=== PATIENT | female | born 1990 | race Asian ===

== ENCOUNTER 2016-10-17 00:45 | Outpatient (CLI) | payer MEDICAID ==
[~2016-10-17] VITALS: Ht 154.9 cm; Wt 85.4 kg
[~2016-10-17 00:45] MED LIST: PREN1TAB49; PREN1TAB49 PO
[2016-10-17 02:12] VITALS: Ht 154.9 cm; Wt 85.4 kg
[2016-10-17 02:13] VITALS: BP 117/72; PULSE 91; RESP 16
--- NOTE | 2016-10-17 02:19 | TRIAGE ---
OB Triage Datetime Report Generated by CPN: 10/17/2016 02:19 Datetime: 10/17/2016 02:00 Stage of : OB Triage Datetime: 10/17/2016 01:49 Stage of : OB Triage Datetime: 10/17/2016 01:42 Maternal Assessment Level of Consciousness: Fully Conscious DTR's/Clonus: DTRs 2+; No Clonus Headache: Denies Blurred Vision: No Respiratory Effort: Unlabored; Regular Rhythm; Equal Expansion Breath Sounds, Left: Clear and Equal Breath Sounds, Right: Clear and Equal Nausea/Vomiting: Denies RUQ Epigastric Pain: Denies Lower Extremities Edema: Bilateral Lower Extremities Degree: 1+ Upper Extremities Edema: None Degree: None Facial Edema: None Fall Risk Assessment History of Falling: (0) No Secondary Diagnosis: (0) No Ambulatory Aid: (0) Bedrest/Nurse Assist IV Therapy: (0) No Gait: (0) Normal/Bedrest/Immobile Mental Status: (0) Oriented to Own Ability Fall Score: 0 Fall Risk Score Definition: No Risk: No action required Datetime: 10/17/2016 01:41 EGA: 31.2 Datetime: 10/17/2016 01:39 Time of Arrival: 10/17/2016 00:45 Arrived By: Ambulatory Arrived From: Home Chief Complaint: Patient was encouraged to come to labor and delivery if she has more than 3 UCs i n one hour Movement: Present Contractions: Irregular Time Contractions Began: 10/16/2016 23:30 Rupture of Membranes: Denies Vaginal Bleeding: None Vaginal Discharge: Denies Recent Sexual Intercouse: Denies Abdominal Trauma: Not Applicable Patient Complaints: Contractions Time Provider Notified: 10/17/2016 01:40 Provider Notified: Bear Initial Plan: VS/VE/External monitors Datetime: 10/17/2016 01:32 Vaginal Exam Dilatation (cms): 0.0 Effacement (%): 0 Station: -3 Exam By: Marta Kerr RN Membrane Status: Intact Vaginal Bleeding: None Cervix, Consistency: Firm Cervix, Position: Posterior Datetime: 10/17/2016 01:28 Stage of : OB Triage
--- NOTE | 2016-10-17 05:45 | PN ---
Triage Information Date/Time Weeks of Gestation 31 : 1 Para: 0 Diabetes: none, gestational Diabetes management: diet controlled Hypertention: none Additional information patient came with c/o 2-3 ctx per hour; no ctx right now. No VB, no LOF, good FM Objective Vital Signs Date Time Temp Pulse Resp B/P Pulse Ox O2 Delivery O2 Flow Rate FiO2 10/17/16 02:13 97.7 91 16 117/72 98 Room Air Heart Rate: 140's Contractions: None Exam abdomen- gravid, n/t SVE- l/c/p Assessment/Plan 26 yo P0 @ 31 wks, r/o PTL - SVE l/c/p - patient not currently having any ctx - reassuring status; not in PTL -d/c home SHELLY KELLEY MD Oct 17, 2016 05:45
== END 2016-10-17 02:00 | disposition home or self-care (01) ==
LOC: L-D 00:45 → OBT 00:45
PROVIDERS: ATTEND Obstetrics & Gynecology
DX: O62.9 Abnormality of forces of labor, unspecified (principal); O24.410 Gestational diabetes mellitus in pregnancy, diet controlled; Z3A.31 31 weeks gestation of pregnancy
CPT/HCPCS: G0463

== ENCOUNTER 2016-11-05 13:13 | Outpatient (CLI) | payer MEDICAID ==
[~2016-11-05] VITALS: Ht 152.4 cm; Wt 85.7 kg
[2016-11-05 13:30] VITALS: BP 116/87; PULSE 114; RESP 20; Ht 152.4 cm; Wt 85.7 kg
--- NOTE | 2016-11-05 14:25 | RADRPT ---
PROCEDURE: OB ultrasound for biophysical profile CLINICAL INDICATION: Gestational diabetes mellitus. TECHNIQUE: Multiple sonographic images of the pelvis were obtained. Transabdominal view of the gr avid uterus are available for review. The images were reviewed on a PACS workstation. COMPARISON: None FINDINGS: breathing movement = 2/2 tone = 2/2 motion = 2/2 Quantitative amniotic fluid volume = 2/2 USAMA = 16.7 cm Single live intrauterine with cardiac activity at 140 beats per minute. There is a fundal placenta without previa. IMPRESSION: 1. Single living intrauterine gestation in breech position. 2. Biophysical profile = 8. 3. USAMA = 16.7 cm. RPTAT: AACC Physician Sophia Date Time Electronically viewed and signed by Physician Sophia on 11/05/2016 14:25 /
--- NOTE | 2016-11-05 16:37 | RADRPT ---
PROCEDURE: US OB. CLINICAL INDICATION: Gestational diabetes. TECHNIQUE: Multiple sonographic images of the uterus were obtained. The images were revi ewed on a PACS workstation. COMPARISON: No prior studies are available for comparison. FINDINGS: There is a single live intrauterine gestation. heart rate is 139 beats per minute. Measurements were made in order to determine age. The results are as follows: BPD = 9.24 cm. HC = 32.67 cm. AC = 33.81 cm. FL = 7.18 cm. Estimated weight is 3199 +/- 480 grams. LMP growth percentile is greater than 97 %. Menstrual age by ultrasound dates is 37 weeks 2 days. The estimated date of delivery is 11/24/2016. Position is breech and placenta is right lateral grade 1. There is no evidence for an abruption or p lacenta previa. IMPRESSION: 1. Single live intrauterine gestation of 37 weeks 2 days menstrual age by ultrasound dates. 2. The estimated date of delivery is 11/24/2016. 3. LMP growth percentile is greater than 97. RPTAT: QQ .Chuck Brunner MD, MD Date Time Electronically viewed and signed by .Chuck Brunner MD, on 11/05/2016 16:37 .R/
--- NOTE | 2016-11-05 17:47 | PN ---
Triage Information Date/Time 11/05/2016 Weeks of Gestation 34+ : 6 Para: 3 Diabetes: gestational Diabetes management: diet controlled, oral agent Hypertention: none Additional information sent in for antepartum testing Objective Vital Signs Date Time Temp Pulse Resp B/P Pulse Ox O2 Delivery O2 Flow Rate FiO2 11/05/16 13:30 97.5 114 20 116/87 Room Air Heart Rate: 140's Heart Rate Comments reactive Results/Medications Result Diagram: 11/05/16 1555 Results 24 hrs Laboratory Tests Test 11/05/16 15:55 Glucose Level 187 Hemoglobin A1c 7.3 H Imaging Results BPP 8/ EFW: 3199gn and breech Assessment/Plan follow up out patient ALLISON GUTIERREZ MD Nov 05, 2016 17:46
--- NOTE | 2016-11-05 18:46 | TRIAGE ---
OB Triage Datetime Report Generated by CPN: 11/05/2016 18:46 Datetime: 11/05/2016 17:30 Labor Evaluation Frequency: 0 Monitor Mode: External Heart Rate FHR Baseline Rate: 140 Monitor Mode: External US Variability: Moderate 6-25 bpm Accelerations: 15X15 Decelerations: None Category: Category I Pain Assessment Pain Scale: 0 Pain Presence: None/Denies Pain Type: N/A Pain Goal: 0 Datetime: 11/05/2016 16:59 Labor Evaluation Frequency: X3 Monitor Mode: External Duration (sec)2399: 40-60 Quality: Mild Pattern: Normal: <= 5 Contractions in 10 Minutes Resting Tone [place]: Relaxed Heart Rate FHR Baseline Rate: 140 Monitor Mode: External US FHR Baseline Changes: No Baseline Change Variability: Moderate 6-25 bpm Accelerations: 15X15 Decelerations: None Category: Category I Pain Assessment Pain Scale: 0 Pain Presence: None/Denies Pain Type: N/A Pain Goal: 0 Datetime: 11/05/2016 16:00 Labor Evaluation Frequency: 0 Monitor Mode: External Heart Rate FHR Baseline Rate: 150 Monitor Mode: External US FHR Baseline Changes: No Baseline Change Variability: Moderate 6-25 bpm Accelerations: 15X15 Decelerations: None Category: Category I Pain Assessment Pain Scale: 0 Pain Presence: None/Denies Pain Type: N/A Pain Goal: 0 Datetime: 11/05/2016 15:30 Labor Evaluation Frequency: X3 Monitor Mode: External Duration (sec)2399: 60 Quality: Mild Pattern: Normal: <= 5 Contractions in 10 Minutes Resting Tone [place]: Relaxed Heart Rate FHR Baseline Rate: 140 Monitor Mode: External US FHR Baseline Changes: No Baseline Change Variability: Moderate 6-25 bpm Accelerations: 10X10 Decelerations: None Category: Category I Pain Assessment Pain Scale: 0 Pain Presence: None/Denies Pain Type: N/A Pain Goal: 0 Datetime: 11/05/2016 15:00 Labor Evaluation Frequency: X1 Monitor Mode: External Duration (sec)2399: 60 Quality: Mild Pattern: Normal: <= 5 Contractions in 10 Minutes Resting Tone [place]: Relaxed Heart Rate FHR Baseline Rate: 140 Monitor Mode: External US FHR Baseline Changes: No Baseline Change Variability: Moderate 6-25 bpm Accelerations: 15X15 Decelerations: None Category: Category I Pain Assessment Pain Scale: 0 Pain Presence: None/Denies Pain Type: N/A Pain Goal: 0 Datetime: 11/05/2016 14:00 Labor Evaluation Frequency: X2 Monitor Mode: External Duration (sec)2399: 60 Quality: Mild Pattern: Normal: <= 5 Contractions in 10 Minutes Resting Tone [place]: Relaxed Heart Rate FHR Baseline Rate: 140 Monitor Mode: External US FHR Baseline Changes: No Baseline Change Variability: Moderate 6-25 bpm Accelerations: 15X15 Decelerations: None Category: Category I Pain Assessment Pain Scale: 0 Pain Presence: None/Denies Pain Goal: 0 Datetime: 11/05/2016 13:30 Assessment Type: Triage Maternal Assessment Level of Consciousness: Fully Conscious DTR's/Clonus: DTRs 2+; No Clonus Headache: Denies Blurred Vision: No Respiratory Effort: Unlabored; Regular Rhythm; Equal Expansion Nausea/Vomiting: Denies RUQ Epigastric Pain: Denies Lower Extremities Edema: None Degree: None Upper Extremities Edema: None Degree: None Facial Edema: None Fall Risk Assessment History of Falling: (0) No Secondary Diagnosis: (0) No Ambulatory Aid: (0) Bedrest/Nurse Assist IV Therapy: (0) No Gait: (0) Normal/Bedrest/Immobile Mental Status: (0) Oriented to Own Ability Fall Score: 0 Fall Risk Score Definition: No Risk: No action required Datetime: 11/05/2016 13:28 Monitor Mode: External Monitor Mode: External US Pain Assessment Pain Scale: 0 Pain Presence: None/Denies Pain Type: N/A Pain Goal: 0 Datetime: 11/05/2016 13:25 Time of Arrival: 11/05/2016 13:10 EGA: 34.0 Arrived By: Ambulatory Arrived From: Dr. Singh Chief Complaint: PT SENT BY FOR NST AND BPP Movement: Present Rupture of Membranes: Denies Vaginal Bleeding: None Vaginal Discharge: Denies Recent Sexual Intercouse: Denies Abdominal Trauma: Not Applicable Patient Complaints: None Time Provider Notified: 11/05/2016 15:33 Provider Notified: DR. DILLON Initial Plan: MK HOLLAND Datetime: 10/17/2016 01:45 Stage of : OB Triage Maternal Assessment Level of Consciousness: Fully Conscious Labor Evaluation Frequency: 0/hour Monitor Mode: External Quality: Mild Pattern: Normal: <= 5 Contractions in 10 Minutes Resting Tone [place]: Relaxed Contraction Comments: patient denies feeling any UCs at this time - since she has been in OB triag e Heart Rate FHR Baseline Rate: 140 Monitor Mode: External US FHR Baseline Changes: No Baseline Change Variability: Moderate 6-25 bpm Accelerations: 10X10 Decelerations: None Category: Category I Pain Assessment Pain Scale: 0 Pain Presence: None/Denies Pain Type: N/A Pain Goal: 0 Pain Relief Measures: Comfort Measures Pain Assessment Comments: patient denies pain Datetime: 10/17/2016 01:42 Stage of : OB Triage Fall Score: 0 Fall Risk Score Definition: No Risk: No action required Pain Assessment Pain Scale: 0 Pain Presence: None/Denies Pain Type: N/A Pain Assessment Comments: patient denies pain at this time Datetime: 10/17/2016 01:41 EGA: 31.2 Datetime: 10/17/2016 01:39 Chief Complaint: Per patient - patient was encouraged by her doctor to come to labor and delivery if she has more than 3 UCs in one hour Additional Patient Complaints: None Datetime: 10/17/2016 01:15 Stage of : OB Triage Maternal Assessment Level of Consciousness: Fully Conscious Headache: Denies Nausea/Vomiting: Denies Labor Evaluation Frequency: 1/hour Monitor Mode: External Duration (sec)2399: 40 Quality: Mild Pattern: Normal: <= 5 Contractions in 10 Minutes Resting Tone [place]: Relaxed Heart Rate FHR Baseline Rate: 145 Monitor Mode: External US FHR Baseline Changes: No Baseline Change Variability: Moderate 6-25 bpm Accelerations: 10X10 Decelerations: None Category: Category I Pain Assessment Pain Scale: 0 Pain Presence: None/Denies Pain Type: N/A Pain Goal: 0 Pain Assessment Comments: patient denies pain
== END 2016-11-05 17:55 | disposition home or self-care (01) ==
LOC: OBT 13:13 → L-D 13:16 → OBT 17:55
PROVIDERS: ATTEND Obstetrics & Gynecology
DX: O24.419 Gestational diabetes mellitus in pregnancy, unspecified control (principal); Z3A.34 34 weeks gestation of pregnancy
CPT/HCPCS: 76815; 76818; 82947; 83036; Z7500; G0463

== ENCOUNTER 2016-11-07 16:12 | Inpatient (IN) | payer MEDICAID ==
[~2016-11-07] VITALS: Ht 152.4 cm; Wt 85.5 kg
[~2016-11-07 16:12] MED LIST changes: -PREN1TAB49 PO
[2016-11-07] MEDS ORDERED: METF500T3 PO (17:11)
[2016-11-07] MEDS: LACTATED RINGER'S 1,000 ML IV SCH ×2 (17:58→20:14)
[2016-11-07] MEDS ORDERED: BETAMET NA PHOS/AC(6 MG/ML) 5ML INJ IM ONE (18:00)
[2016-11-07] MEDS ORDERED: CARBOPROST 250 MCG INJ IM PRN (18:00)
[2016-11-07] MEDS ORDERED: METHYLERGONOVINE 0.2 MG INJ IM PRN (18:00)
[2016-11-07] MEDS ORDERED: OXYTOCIN 30 UNITS/LR 500 ML IV SCH ×2 (18:00)
[2016-11-07] MEDS ORDERED: OXYTOCIN 30 UNITS/LR 500 ML IV PRN (18:00)
[2016-11-07] MEDS ORDERED: MAGNESIUM SULFATE 4 GM/100 ML 100 ML IVPB ONE (18:00)
[2016-11-07] MEDS ORDERED: MISOPROSTOL 200 MCG TAB PR PRN (18:00)
[2016-11-07 18:03] LABS: BASOPHIL # 0.1 10^3/ul (0.0-0.1); BASOPHILS % 0.6 % (0.0-2.0); EOSINOPHILS # 0.2 10^3/ul (0.0-0.5); EOSINOPHILS % 2.6 % (0.0-7.0); HEMATOCRIT 39.3 % (37.0-47.0); HEMOGLOBIN 13.4 g/dl (12.0-16.0); LYMPHOCYTES % 24.4 % (15.0-51.0); MEAN CORPUSCULAR HEMOGLOBIN 30.2 pg (29.0-33.0); MEAN CORPUSCULAR HGB CONC 34.1 g/dl (32.0-37.0); MEAN CORPUSCULAR VOLUME 88.7 fl (82.0-101.0); MEAN PLATELET VOLUME 10.8 fl (7.4-10.4); MONOCYTE # 0.5 10^3/ul (0.3-0.9); MONOCYTES % 6.1 % (0.0-11.0); NEUTROPHIL # 5.3 10^3/ul (1.6-7.5); NEUTROPHILS % 65.3 % (39.0-77.0); PLATELET COUNT 239 10^3/UL (140-415); RED BLOOD COUNT 4.43 10^6/ul (4.20-5.40); RED CELL DISTRIBUTION WIDTH 13.8 % (11.5-14.5); WHITE BLOOD COUNT 8.1 10^3/ul (4.8-10.8)
[2016-11-07 18:26] LABS: PARTIAL THROMBOPLASTIN TIME 24.9 Sec (25.0-35.0)
[2016-11-07] MEDS: MAGNESIUM SULFATE 20 GM/500 ML 500 ML IV SCH (18:33)
[2016-11-07 18:36] VITALS: BP 119/72; PULSE 104; RESP 20
[2016-11-07 18:51] LABS: ADD UMIC YES; UR ASCORBIC ACID NEGATIVE (NEGATIVE); UR BACTERIA FEW /HPF (NONE SEEN); UR BILIRUBIN (Dip) NEGATIVE (NEGATIVE); UR BLOOD (Dip) NEGATIVE (NEGATIVE); UR CLARITY CLOUDY (CLEAR); UR COLOR YELLOW (YELLOW); UR GLUCOSE (Dip) NEGATIVE (NEGATIVE); UR KETONES (Dip) 2+ mg/dL (NEGATIVE); UR LEUKOCYTE ESTERASE (Dip) TRACE Leu/ul (NEGATIVE); UR NITRITE (Dip) NEGATIVE (NEGATIVE); UR RBC 2 /HPF (0-5); UR SPECIFIC GRAVITY (Dip) 1.013 (1.003-1.030); UR SQUAMOUS EPITHELIAL CELL MODERATE /HPF (FEW); UR TOTAL PROTEIN (Dip) NEGATIVE (NEGATIVE); UR UROBILINOGEN (Dip) NEGATIVE (NEGATIVE)
[2016-11-07 19:28] LABS: INR 0.9; PROTIME 12.2 Sec (12.2-14.2)
[2016-11-07] MEDS ORDERED: TERBUTALINE 1 MG/ML INJ SC PRN (22:00)
--- NOTE | 2016-11-07 22:32 | HP ---
Date/Time of Note Date/Time of Note DATE: 11/07/16 TIME: 22:29 OB - History Hx of Present Free Text/Dictation 17 by NST unit for persistent uterine contractions at 34 weeks Chief Complaint: Labor contract Last Menstrual Period: Mar 13, 2016 Estimated Due Date: Dec 18, 2016 : 4 Para: 2 Spontaneous : 1 Care: Good Care Ultrasounds: Normal mid trimester US Obstetrical Complications: Gestational Diabetes (Class A-II) Medical Complications: None, Other (Previous 2) Past Family/Social History * Past Medical, Surgical, Family and Obstetric Histories reviewed from chart. Blood Type: A+ Rubella: immune RPR/VDRL: Negative GBS Status: Unknown HBsAG: Negative OB Admission Exam Vital Signs Vital Signs Vital Signs Date Time Temp Pulse Resp B/P Pulse Ox O2 Delivery O2 Flow Rate FiO2 11/07/16 18:36 97.1 104 20 119/72 Room Air Physical Exam HEENT: WNL Heart: Rhythm Normal Lungs: Clear, Equal Abdomen: WNL Extremities: Normal Reflexes: Normal Cervical Dilatation: 2cm Effacement: 50% Station: -3 Membranes: Intact Heart Rate: 150's Accelerations: Accelerations Present Decelerations: No Decelerations Varibility: Marked Contractions on Admission: < 5 Minutes Apart Date/Time Contractions Began: 11/07/2016 in a.m. Frequency of Contractions: Every 5 minute Duration: Over 1 minute Intensity: Mild Last 72 hours Lab Results CBC & BMP 11/07/16 17:45 OB Assessment/Plan Reason for admission: labor Other Assessment: 34+ weeks gestation Class A-II diabetes Other plan: Topical lysis of contractions ALLISON GUTIERREZ MD Nov 07, 2016 22:32
[2016-11-07] MEDS: metFORMIN (XR) 500 MG TAB PO SCH (22:59)
[2016-11-07] MEDS: ACCU-CHEK XX SCH (23:40)
[2016-11-08] MEDS ORDERED: GLUCOSE GEL 15 GRAM TUBE PO PRN ×2
[2016-11-08] MEDS ORDERED: GLUCOSE GEL 15 GRAM TUBE BUCCAL PRN
[2016-11-08] MEDS ORDERED: GLUCAGON 1 MG INJ IM PRN
[2016-11-08] MEDS ORDERED: DEXTROSE 50% 50 ML SYRINGE IV PRN ×2
[2016-11-08] MEDS: ACCU-CHEK XX SCH ×6 (03:32→20:22)
[2016-11-08] MEDS: MAGNESIUM SULFATE 20 GM/500 ML 500 ML IV SCH ×3 (04:14→22:27)
[2016-11-08] MEDS: LACTATED RINGER'S 1,000 ML IV SCH ×2 (05:11→17:57)
[2016-11-08] MEDS: FAMOTIDINE 20 MG TAB PO SCH ×2 (08:09→21:28)
[2016-11-08] MEDS ORDERED: INSULIN ASPART [NOVOLOG] 3 ML PEN SC SCH (09:35)
[2016-11-08] MEDS: DOCUSATE SODIUM 100 MG CAP PO SCH (10:11)
[2016-11-08] MEDS: PRENATAL VITAMIN PO SCH (10:11)
[2016-11-08] MEDS: INSULIN ASPART [NOVOLOG] 3 ML PEN SC SCH ×2 (12:53→18:06)
[2016-11-08] MEDS ORDERED: BETAMET NA PHOS/AC(6 MG/ML) 5ML INJ IM ONE (18:00)
--- NOTE | 2016-11-08 18:01 | PN ---
Date/Time of Note Date/Time of Note DATE: 11/08/16 TIME: 17:59 OB Subjective Subjective Subjective No more complaint of uterine contractions OB Objective Objective Objective General physical exam is unchanged Vital signs are stable On electronic monitoring minimal uterine contractions seen Patient is supposed to receive the second dose of steroid today Currently on sliding scale of insulin for sugar control OB Assessment/Plan Reason for admission: labor Other Assessment: 34 weeks gestation Gestational diabetes out of control Other plan: We will consult perinatologist regarding sugar control Continue tocolysis until next day Change to p.o. tocolytics next day ALLISON GUTIERREZ MD Nov 08, 2016 18:01
[2016-11-08] MEDS: metFORMIN (XR) 500 MG TAB PO SCH (18:32)
[2016-11-09] MEDS: LACTATED RINGER'S 1,000 ML IV SCH ×3 (01:38→17:38)
[2016-11-09] MEDS: MAGNESIUM SULFATE 20 GM/500 ML 500 ML IV SCH (08:38)
[2016-11-09] MEDS: FAMOTIDINE 20 MG TAB PO SCH ×2 (08:40→21:00)
[2016-11-09] MEDS: PRENATAL VITAMIN PO SCH (08:48)
[2016-11-09] MEDS: DOCUSATE SODIUM 100 MG CAP PO SCH (08:48)
[2016-11-09] MEDS: INSULIN ASPART [NOVOLOG] 3 ML PEN SC SCH ×5 (08:50→17:38)
[2016-11-09] MEDS: ACCU-CHEK XX SCH ×4 (10:55→20:54)
--- NOTE | 2016-11-09 12:30 | PN ---
Date/Time of Note Date/Time of Note DATE: 11/09/16 TIME: 12:27 OB Subjective Subjective Subjective No more complaint of uterine contractions OB Objective Objective Objective General physical exam is unchanged and vital signs are stable On electronic monitoring uterine contractions seen 2 times every hour at most Fasting blood sugars in 2 hours are still elevated OB Assessment/Plan Reason for admission: labor Other Assessment: Uncontrolled gestational diabetes 34+ weeks gestation Breech presentation Other plan: Will start on nifedipine after stopping magnesium sulfate at 1800 p.m. Start on NPH insulin nightly Perinatology consult for sugar control Diabetic nurse consult for for diet control and insulin initiation ALLISON GUTIERREZ MD Nov 09, 2016 12:30
[2016-11-09] MEDS: metFORMIN (XR) 500 MG TAB PO SCH (17:39)
[2016-11-09] MEDS: NIFEdipine 10 MG CAP PO SCH (17:41)
[2016-11-09] MEDS ORDERED: NPH, HUMAN INSULIN ISOPHANE 3ML VIAL SC SCH (21:00)
[2016-11-10] MEDS: NIFEdipine 10 MG CAP PO SCH ×4 (00:17→17:44)
[2016-11-10] MEDS: ACCU-CHEK XX SCH ×3 (08:06→14:04)
[2016-11-10] MEDS: PRENATAL VITAMIN PO SCH (09:03)
[2016-11-10] MEDS: DOCUSATE SODIUM 100 MG CAP PO SCH (09:03)
[2016-11-10] MEDS: FAMOTIDINE 20 MG TAB PO SCH (09:03)
[2016-11-10] MEDS ORDERED: ACETAMINOPHEN 325 MG TAB PO PRN (12:30)
--- NOTE | 2016-11-10 16:08 | PERINOTE ---
Date/Time of Note Date/Time of Note DATE: 11/10/16 TIME: 16:00 Assessment/Recommendations Other Assessments contractions, now abated Gestational diabetes, poorly controlled Recommendations: I have rewritten the patient's insulin orders. Anticipate that she will require additional insulin for coverage for steroid use for an additional 1-2 days. Would consider discharging her home with follow up in one week for adjustment of insulin. OB Subjective Free Text/Dictaton Patient with gestational diabetes, admitted for [facility] and treated for presumed labor. Blood glucose is poorly controlled, at least partly due to use of betamethasone for lung maturity. Patient now without complaints. HD# 4 IUP @ 34W4D Current Medications Current Medications Oxytocin/Lactated Ringer's 500 ml @ 125 mls/hr ONCE IV ; Start 11/07/16 at 18: 00 Oxytocin/Lactated Ringer's 500 ml @ 0 mls/hr ONCE PRN IV For Hemorrhage Management; Start 11/07/16 at 18:00 Methylergonovine Maleate (Methergine) 0.2 mg ONCE PRN IM VAGINAL BLEEDING; Start 11/07/16 at 18:00 Carboprost Tromethamine (Hemabate) 250 mcg ONCE PRN IM VAGINAL BLEEDING; Start 11/07/16 at 18:00 Misoprostol (Cytotec) 1,000 mcg ONCE PRN GA VAGINAL BLEEDING; Start 11/07/16 at 18:00 Terbutaline Sulfate (Brethine) 0.25 mg Q4 PRN SC CONTRACTIONS Last administered on 11/07/16 22:00; Admin Dose 0.25 MG; Start 11/07/16 at 22:00 Prenat Multivit/ [place]/Iron/Folic Ac () 1 tab DAILY PO Last administered on 11/10/16 09:03; Admin Dose 1 TAB; Start 11/08/16 at 09:00 Famotidine (Pepcid) 20 mg BID PO Last administered on 11/10/16 09:03; Admin Dose 20 MG; Start 11/08/16 at 09:00 Miscellaneous Information 1 ea NOTE XX ; Start 11/08/16 at 00:00 Glucose (Glutose) 15 gm Q15M PRN PO DECREASED GLUCOSE; Start 11/08/16 at 00:00 Glucose (Glutose) 22.5 gm Q15M PRN PO DECREASED GLUCOSE; Start 11/08/16 at 00: 00 Dextrose (D50w Syringe) 25 ml Q15M PRN IV DECREASED GLUCOSE; Start 11/08/16 at 00:00 Dextrose (D50w Syringe) 50 ml Q15M PRN IV DECREASED GLUCOSE; Start 11/08/16 at 00:00 Glucagon (Glucagen) 1 mg Q15M PRN IM DECREASED GLUCOSE; Start 11/08/16 at 00:00 Glucose (Glutose) 15 gm Q15M PRN BUCCAL DECREASED GLUCOSE; Start 11/08/16 at 00 :00 Diagnostic Test (Pha) (Accu-Chek) 1 ea FBSPP XX Last administered on 11/10/16 14:04; Admin Dose 1 EA; Start 11/08/16 at 06:00 Docusate Sodium (Colace) 100 mg DAILY PO Last administered on 11/10/16 09:03; Admin Dose 100 MG; Start 11/08/16 at 10:30 Nifedipine (Procardia) 20 mg Q6 PO Last administered on 11/10/16 12:05; Admin Dose 20 MG; Start 11/09/16 at 18:00 Insulin Human NPH (Humulin N) 10 unit QHS SC Last administered on 11/09/16 21: 06; Admin Dose 10 UNIT; Start 11/09/16 at 21:00 IV Flush (NS 10 ml) 10 ml Q8 IV Last administered on 11/10/16 14:09; Admin Dose 10 ML; Start 11/09/16 at 22:00 Acetaminophen (Tylenol Tab) 650 mg Q6H PRN PO PAIN AND OR ELEVATED TEMP Last administered on 11/10/16 12:16; Admin Dose 650 MG; Start 11/10/16 at 12:30 Past Medical History Medical History: no pertinent history Surgical History: no surgical history 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 Para: 3 : 6 LMP (Females 10-50): Family History Significant Family History: diabetes OB Admission Exam Physical Exam Vitals: Vital Signs Date Time Temp Pulse Resp B/P Pulse Ox O2 Delivery O2 Flow Rate FiO2 11/07/16 18:36 97.1 104 20 119/72 Room Air 11/10/16 87 116/57 Heart: Rhythm Normal Lungs: Clear Abdomen: WNL Heart Rate: 150's Accelerations: Accelerations Present Decelerations: No Decelerations Varibility: Moderate Contractions on Admission: None Last 72 hourBlood Glucose Bedside Glucose - 72 Hours Test 11/07/16 23:43 11/08/16 07:51 11/08/16 09:48 11/08/16 12:47 Bedside Glucose 344mg/dL (70-220) H 147mg/dL (70-220) 137mg/dL (70-220) 147mg/dL (70-220) Test 11/08/16 14:51 11/08/16 17:58 11/08/16 20:13 11/09/16 08:47 Bedside Glucose 140mg/dL (70-220) 158mg/dL (70-220) 206mg/dL (70-220) 136mg/dL (70-220) Test 11/09/16 10:50 11/09/16 12:53 11/09/16 14:59 11/09/16 17:32 Bedside Glucose 144mg/dL (70-220) 144mg/dL (70-220) 188mg/dL (70-220) 148mg/dL (70-220) Test 11/09/16 21:05 11/10/16 08:32 11/10/16 10:36 11/10/16 12:33 Bedside Glucose 189mg/dL (70-220) 124mg/dL (70-220) 126mg/dL (70-220) 108mg/dL (70-220) Last 72 hours Lab Results CBC & BMP 11/07/16 17:45 Magnesium Level Test 11/08/16 00:48 11/08/16 06:38 11/08/16 11:59 11/08/16 18:13 Magnesium Level 4.2 H 4.6 H 4.6 H 4.4 H Test 11/09/16 00:38 11/09/16 07:58 11/09/16 13:12 11/09/16 18:12 Magnesium Level 4.4 H 4.5 H 4.4 H 3.6 H DADA FRAIRE MD Nov 10, 2016 16:08
--- NOTE | 2016-11-10 17:09 | DS ---
Date/Time of Note Date/Time of Note DATE: 11/10/16 TIME: 17:08 Obstetrical Discharge Record Final Diagnosis Final Diagnosis: not delivered Other Final Diagnosis labor Please presented Controlled diabetes Complications Labor Tocolytics: Magnesium Sulfate, Other (Nifedipine) Condition on Discharge Physical Assessment Last Vitals: See nurse's note Voiding: Yes Bowel Movement: Yes Breast: Soft, non-tender, Filling Fundus: Other () Abdomen and Incision: Gravid Episiotomy: Not applicable Calf Tenderness: No Patient Condition: Good ALLISON GUTIERREZ MD Nov 10, 2016 17:09
--- NOTE | 2016-11-10 17:12 | DS ---
Date/Time of Note Date/Time of Note DATE: 11/10/16 TIME: 17:10 Discharge Summary Admission/Discharge Info Admit Date/Time Nov 07, 2016 at 17:58 Discharge Date/Time November 10, 2016 Discharge Diagnosis contractions at 34+ weeks Breech presented Uncontrolled diabetes Patient Condition: Good Procedures None Hx of Present Illness 26-year-old female was sent in from antepartum unit for management of a contractions and had tocolysis of uterine contractions and also diabetes was controlled Hospital Course Uncomplicated Home Meds Reported Medications Metformin Hcl* (Metformin Hcl* ER) 500 Mg Tab.sr.24h, 500 MG PO DAILY, #30 TAB 11/07/16 Vits W-Ca,Fe,Fa(<1MG) () 1 Tab Tablet 02/04/11 Discontinued Reported Medications Vits W-Ca,Fe,Fa(<1MG) () 1 Tab Tablet, 1 PO DAILY, #1 02/04/11 Follow-up Plan 2 days in clinic Bed on pelvic rest until delivery Continue taking nifedipine Breech precautions were given to the patient Continue using nightly insulin Continue blood check at home Primary Care Provider Care Physician No Primary Time spent on discharge: < 30 minutes Pending Labs Laboratory Tests Test 11/09/16 17:32 11/09/16 18:12 11/09/16 21:05 11/10/16 08:32 Bedside Glucose 148mg/dL (70-220) 189mg/dL (70-220) 124mg/dL (70-220) Magnesium Level 3.6mg/dl (1.7-2.5) Test 11/10/16 10:36 11/10/16 12:33 Bedside Glucose 126mg/dL (70-220) 108mg/dL (70-220) ALLISON GUTIERREZ MD Nov 10, 2016 17:12
--- NOTE | 2016-11-10 17:14 | PD.PPDC ---
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
[2016-11-10] MEDS ORDERED: Accu-Chek XX (17:16)
[2016-11-10] MEDS ORDERED: ACCU-CHEK XX SCH ×3 (17:35→20:05)
[2016-11-10] MEDS ORDERED: INSULIN ASPART [NOVOLOG] 3 ML PEN SC SCH ×3 (17:35→20:05)
[2016-11-10] MEDS ORDERED: INSULIN ISOPHANE (NPH) 10 ML INJ SC SCH (21:00)
[2016-11-11] MEDS ORDERED: INSULIN ISOPHANE (NPH) 10 ML INJ SC SCH (07:30)
[2016-11-11] MEDS ORDERED: INSULIN ASPART [NOVOLOG] 3 ML PEN SC SCH (08:00)
== END 2016-11-10 19:10 | disposition home or self-care (01) | DRG 778 ==
LOC: OBT 16:12 → L-D 16:12 → OBT 17:55 → L-D 17:58 → OBG 11-08 07:28
PROVIDERS: ADMIT Obstetrics & Gynecology; ATTEND Obstetrics & Gynecology
PROC: 4A1HX4Z Monitoring of Products of Conception, Cardiac Electrical Activity, External Approach (ICD-10-PCS; principal; 2016-11-07)
DX: O60.03 Preterm labor without delivery, third trimester (principal); O24.415 Gestational diabetes mellitus in pregnancy, controlled by oral hypoglycemic drugs; O32.1XX0 Maternal care for breech presentation, not applicable or unspecified; O34.219 Maternal care for unspecified type scar from previous cesarean delivery; Z83.3 Family history of diabetes mellitus; Z3A.34 34 weeks gestation of pregnancy
CPT/HCPCS: 81001; 82947; 82962; 83735; 85025; 85610; 85730; 86592; 86850; 86900; 86901; 87340; G0463; J0702; J1815; J3105; J3475; J7120

== ENCOUNTER 2016-11-19 17:40 | Outpatient (CLI) | payer MEDICAID ==
[~2016-11-19] VITALS: Ht 152.4 cm; Wt 86.9 kg
[~2016-11-19 17:40] MED LIST changes: +Accu-Chek XX; +METF500T3 PO
[2016-11-19 18:17] VITALS: BP 128/85; RESP 18; Ht 152.4 cm; Wt 86.9 kg
[2016-11-19 19:14] LABS: BASOPHILS % 0.5 % (0.0-2.0); EOSINOPHILS # 0.1 10^3/ul (0.0-0.5); EOSINOPHILS % 1.3 % (0.0-7.0); HEMATOCRIT 37.1 % (37.0-47.0); HEMOGLOBIN 12.9 g/dl (12.0-16.0); LYMPHOCYTES # 2.1 10^3/ul (0.8-2.9); LYMPHOCYTES % 25.8 % (15.0-51.0); MEAN CORPUSCULAR HEMOGLOBIN 30.9 pg (29.0-33.0); MEAN CORPUSCULAR HGB CONC 34.8 g/dl (32.0-37.0); MEAN CORPUSCULAR VOLUME 88.8 fl (82.0-101.0); MEAN PLATELET VOLUME 11.1 fl (7.4-10.4); MONOCYTE # 0.6 10^3/ul (0.3-0.9); NEUTROPHIL # 5.1 10^3/ul (1.6-7.5); NEUTROPHILS % 64.3 % (39.0-77.0); PLATELET COUNT 236 10^3/UL (140-415); RED BLOOD COUNT 4.18 10^6/ul (4.20-5.40); RED CELL DISTRIBUTION WIDTH 14.2 % (11.5-14.5)
[2016-11-19] MEDS ORDERED: SS SC (19:20)
[2016-11-19] MEDS ORDERED: INSU100V3 IJ (19:20)
[2016-11-19] MEDS ORDERED: NPH,100I5 SQ ×2 (19:20)
[2016-11-19] MEDS ORDERED: PRO20 PO (19:20)
[2016-11-19 19:28] LABS: INR 0.96; PROTIME 12.8 Sec (12.2-14.2)
[2016-11-19 19:29] LABS: PARTIAL THROMBOPLASTIN TIME 24.6 Sec (25.0-35.0)
[2016-11-19 19:30] LABS: ALBUMIN 3.6 g/dl (3.3-4.9); ALBUMIN/GLOBULIN RATIO 1.12; BILIRUBIN,INDIRECT 0.3 mg/dl (0-1.1); BILIRUBIN,TOTAL 0.3 mg/dl (0.2-1.3); CALCIUM 9.5 mg/dl (8.4-10.2); CREATININE 0.52 mg/dl (0.44-1.00); POTASSIUM 3.6 mmol/L (3.5-5.1); TOTAL PROTEIN 6.8 g/dl (6.1-8.1)
[2016-11-19 19:34] LABS: ADD UMIC NO; UR ASCORBIC ACID NEGATIVE (NEGATIVE); UR BILIRUBIN (Dip) NEGATIVE (NEGATIVE); UR BLOOD (Dip) NEGATIVE (NEGATIVE); UR CLARITY CLEAR (CLEAR); UR COLOR YELLOW (YELLOW); UR GLUCOSE (Dip) 1+ mg/dL (NEGATIVE); UR KETONES (Dip) 1+ mg/dL (NEGATIVE); UR LEUKOCYTE ESTERASE (Dip) NEGATIVE Leu/ul (NEGATIVE); UR NITRITE (Dip) NEGATIVE (NEGATIVE); UR SPECIFIC GRAVITY (Dip) 1.011 (1.003-1.030); UR TOTAL PROTEIN (Dip) NEGATIVE (NEGATIVE); UR UROBILINOGEN (Dip) NEGATIVE (NEGATIVE)
[2016-11-19 19:38] LABS: UR RBC 0 /HPF (0-5); UR SQUAMOUS EPITHELIAL CELL FEW /HPF (FEW)
--- NOTE | 2016-11-19 19:51 | RADRPT ---
PROCEDURE: US OB biophysical profile. CLINICAL INDICATION: Hypertension TECHNIQUE: Multiple sonographic images of the pelvis were obtained. The images were reviewed on a PACS workstation. COMPARISON: 11/05/2016 FINDINGS: There is a single viable intrauterine gestation. There is evidence of polyhydramnios. The amniotic fluid index is 26.3 cm. Cardiac activity is present with 150 beats per minute beats per minute. There is a breech presentation. The head is to the maternal right. The placenta is fundal. Biophysical profile: movement 2/2 tone 2/2. breathing 2/2 USAMA 2/2 Total 8/8 IMPRESSION: 1. Single viable intrauterine gestation in breech presentation. 2. The amniotic fluid index is elevated measuring 26.3 cm consistent with polyhydramnios. 3. The biophysical profile is normal measuring 8/8. RPTAT:AAJJ Physician Janina Date Time Electronically viewed and signed by Physician Janina on 11/19/2016 19:51 /
--- NOTE | 2016-11-19 23:32 | PN ---
Triage Information Date/Time November 19, 2016 Reason for visit: testing including NST/BPP Weeks of Gestation 35 weeks and 6 days /Para IUP at 35 weeks and 6 days Diabetes: gestational Diabetes management: insulin controlled Hypertention: induced Additional information 26-year-old with IUP at 35 weeks and 6 days with gestational diabetes on insulin as well as -induced hypertension presented to triage for testing. patient currently on Procardia. Blood pressure within normal limit. She denies any headache or blurred vision or epigastric pain or right upper quadrant pain. She had occasional vision spots. Denies any symptoms today. She denies any leaking of fluid, vaginal bleeding or decreased movement. Objective Vital Signs Date Time Temp Pulse Resp B/P Pulse Ox O2 Delivery O2 Flow Rate FiO2 11/19/16 18:17 98.2 18 128/85 Room Air Heart Rate: 130's Contractions: 6-10 Minutes Apart Exam General appearance: Alert and oriented 4 patient does not appear to be in any acute distress. Abdomen: Soft, gravid, fundal height consistent with gestational age. Nontender , no rebound tenderness, no guarding or rigidity NST: Category 1 BPP: 11/25 Results/Medications Result Diagram: 11/19/16 1846 11/19/16 1846 Results 24 hrs Laboratory Tests Test 11/19/16 18:00 11/19/16 18:46 Urine Color YELLOW Urine Clarity CLEAR Urine pH 6.0 Urine Specific [place] 1.011 Urine Ketones 1+ H Urine Nitrite NEGATIVE Urine Bilirubin NEGATIVE Urine Urobilinogen NEGATIVE Urine Leukocyte Esterase NEGATIVE Urine Microscopic RBC 0 Urine Microscopic WBC 1 Urine Squamous Epithelial Cells FEW Urine Hemoglobin NEGATIVE Urine Glucose 1+ H Urine Total Protein NEGATIVE White Blood Count 8.0 Red Blood Count 4.18 L Hemoglobin 12.9 Hematocrit 37.1 Mean Corpuscular Volume 88.8 Mean Corpuscular Hemoglobin 30.9 Mean Corpuscular Hemoglobin Concent 34.8 Red Cell Distribution Width 14.2 Platelet Count 236 Mean Platelet Volume 11.1 H Neutrophils % 64.3 Lymphocytes % 25.8 Monocytes % 7.0 Eosinophils % 1.3 Basophils % 0.5 Nucleated Red Blood Cells % 0.0 Neutrophils # 5.1 Lymphocytes # 2.1 Monocytes # 0.6 Eosinophils # 0.1 Basophils # 0.0 Nucleated Red Blood Cells # 0.0 Prothrombin Time 12.8 Prothrombin Time Ratio 1.0 INR International Normalized Ratio 0.96 Activated Partial Thromboplast Time 24.6 L Fibrinogen 631.0 H Sodium Level 139 Potassium Level 3.6 Chloride Level 104 Carbon Dioxide Level 19 L Anion Gap 20 H Blood Urea Nitrogen 6 L Creatinine 0.52 Glucose Level 152 Uric Acid 6.0 Calcium Level 9.5 Total Bilirubin 0.3 Direct Bilirubin 0.00 Indirect Bilirubin 0.3 Aspartate Amino Transf (AST/SGOT) 26 Alanine Aminotransferase (ALT/SGPT) 25 Alkaline Phosphatase 109 Total Protein 6.8 Albumin 3.6 Globulin 3.20 Albumin/Globulin Ratio 1.12 Imaging Results PROCEDURE: US OB biophysical profile. CLINICAL INDICATION: Hypertension TECHNIQUE: Multiple sonographic images of the pelvis were obtained. The images were reviewed on a PACS workstation. COMPARISON: 11/05/2016 FINDINGS: There is a single viable intrauterine gestation. There is evidence of polyhydramnios. The amniotic fluid index is 26.3 cm. Cardiac activity is present with 150 beats per minute beats per minute. There is a breech presentation. The head is to the maternal right. The placenta is fundal. Biophysical profile: movement 2/2 tone 2/2. breathing 2/2 USAMA 2/2 Total 8/8 IMPRESSION: 1. Single viable intrauterine gestation in breech presentation. 2. The amniotic fluid index is elevated measuring 26.3 cm consistent with polyhydramnios. 3. The biophysical profile is normal measuring 8/8. RPTAT:AAJJ Disposition: Discharge Assessment/Plan IUP at 35 weeks and 6 days GDM, A on insulin2, PIH, PIH labs are all normal no evidence of severe preeclampsia Breech presentation. Will have primary low transverse section Plan: DC home Strict labor precaution and kick counts and follow-up with OB office within 24-48 hours discussed 24 hour urine protein collection recommended Strict labor precaution and kick count discussed signs and symptoms of preeclampsia discussed. All questions were answered Continue testing twice a week and follow-up within 24-48 hours with OB clinic recommended Patient verbalized understanding TARIQ DILLON MD Nov 19, 2016 23:32
== END 2016-11-19 20:24 | disposition home or self-care (01) ==
LOC: OBT 17:40 → L-D 17:42 → OBT 20:24
PROVIDERS: ATTEND Obstetrics & Gynecology
DX: O24.414 Gestational diabetes mellitus in pregnancy, insulin controlled (principal); Z3A.35 35 weeks gestation of pregnancy; O13.3 Gestational [pregnancy-induced] hypertension without significant proteinuria, third trimester; O32.1XX0 Maternal care for breech presentation, not applicable or unspecified
CPT/HCPCS: 76818; 80053; 81003; 84560; 85025; 85384; 85610; 85730; Z7500; G0463

== ENCOUNTER 2016-11-21 11:14 | Outpatient (CLI) | payer MEDICAID ==
[~2016-11-21] VITALS: Ht 152.4 cm; Wt 85.7 kg
[~2016-11-21 11:14] MED LIST changes: -Accu-Chek XX; +INSU100V3 IJ; -METF500T3 PO; +NPH,100I5 SQ; +PRO20 PO; +SS SC
--- NOTE | 2016-11-21 12:27 | RADRPT ---
PROCEDURE: US OB biophysical profile. CLINICAL INDICATION: decreased movements , PIH TECHNIQUE: Multiple sonographic images of the pelvis were obtained. The images were reviewed on a PACS workstation. COMPARISON: 11/19/16 FINDINGS: There is a single viable intrauterine gestation. Cardiac activity is present with 128 beats per min ceci. There is a vertex presentation. The placenta is fundal. There is no evidence of placental abruption. There is a increased amount of amniotic fluid with an USAMA = 20.7 cm. Biophysical profile: movement 2/2 tone 2/2. breathing 2/2 USAMA 2/2 Total 11/25 RPTAT: AA . IMPRESSION: Normal biophysical profile. Mild polyhydramnios. . .Gunnar Eldridge MD, Date Time Electronically viewed and signed by .Gunnar Eldridge MD, MD on 11/21/2016 12:27 .S/
[2016-11-21 12:31] VITALS: BP 117/84; PULSE 103
[2016-11-21 13:33] LABS: SCRET 0.49 mg/dl (0.44-1.00)
[2016-11-21] MEDS ORDERED: LACTATED RINGER'S 1,000 ML IV SCH (14:00)
[2016-11-21] MEDS ORDERED: NIFEdipine 10 MG CAP PO ONE (14:00)
--- NOTE | 2016-11-21 16:30 | PN ---
Triage Information Date/Time 11/21/16 Reason for visit: R/O PIH Weeks of Gestation 36.1 /Para 6/3 Diabetes: gestational Diabetes management: insulin controlled Hypertention: induced Additional information came in for F/U 24 hr urine collection for ? PIH Results were >450/24hrs Objective Vital Signs Date Time Temp Pulse Resp B/P Pulse Ox O2 Delivery O2 Flow Rate FiO2 11/21/16 12:31 97.4 103 117/84 Heart Rate: 140's Heart Rate Comments reactive Contractions: >10 Minutes Apart Results/Medications Result Diagram: 11/21/16 1124 Results 24 hrs Laboratory Tests Test 11/21/16 11:20 11/21/16 11:24 11/21/16 13:05 Urine Random Creatinine 36.67 Urine Collection Duration 24 Urine Total Volume 24 Hours 2690 Urine Creatinine Timed 24 Creatinine Clearance 139.8 Urine Total Volume (Protein) 2690 Urine Total Protein 24 Hour 457.3 H Creatinine 0.49 Glucose Level 92 # Bedside Glucose 91 Medications Current Medications Lactated Ringer's (Lr) 1,000 ml @ 125 mls/hr Q8H IV Last administered on t 14:05; Admin Dose 125 MLS/HR; Start 11/21/16 at 14:00 Imaging Results Normal biophysical profile. Mild polyhydramnios. . Disposition: Discharge Assessment/Plan mild PIH at 36.1 weeks Class A 2 DM contractions : resolved spontaneously Breech presentation will schedule for delivery at 37 weeks High risk symptoms described ALLISON GUTIERREZ MD Nov 21, 2016 16:29
--- NOTE | 2016-11-21 16:31 | PD.PPDC ---
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
--- NOTE | 2016-11-21 17:14 | TRIAGE ---
OB Triage Datetime Report Generated by CPN: 11/21/2016 17:13 Datetime: 11/21/2016 16:13 Stage of : OB Triage Datetime: 11/21/2016 15:37 Frequency: 4-6 Monitor Mode: External Duration (sec)2399: 40-50 Quality: Mild Resting Tone [place]: Relaxed FHR Baseline Rate: 145 Monitor Mode: External US Variability: Moderate 6-25 bpm Accelerations: 10X10 Decelerations: None Category: Category I Pain Scale: 0 Pain Presence: None/Denies Pain Type: N/A Pain Location: Abdomen Pain Goal: 3 Pain Relief Measures: Comfort Measures Datetime: 11/21/2016 14:33 Frequency: X1 Monitor Mode: External Duration (sec)2399: 50 Quality: Mild Pattern: Normal: <= 5 Contractions in 10 Minutes Resting Tone [place]: Relaxed FHR Baseline Rate: 135 Monitor Mode: External US Variability: Moderate 6-25 bpm Accelerations: 10X10 Decelerations: None Category: Category I Pain Scale: 5 Pain Presence: Intermittent Pain Type: Cramping Pain Location: Abdomen Pain Goal: 3 Pain Relief Measures: Comfort Measures Datetime: 11/21/2016 14:02 Stage of : OB Triage Datetime: 11/21/2016 13:42 Stage of : OB Triage Datetime: 11/21/2016 13:25 Frequency: 3-5 Monitor Mode: External Duration (sec)2399: 50-60 Quality: Mild Pattern: Normal: <= 5 Contractions in 10 Minutes Resting Tone [place]: Relaxed FHR Baseline Rate: 135 Monitor Mode: External US Variability: Moderate 6-25 bpm Accelerations: 10X10 Decelerations: None Category: Category I Pain Scale: 3 Pain Presence: Intermittent Pain Type: Cramping Pain Location: Abdomen Pain Goal: 3 Pain Relief Measures: Comfort Measures Datetime: 11/21/2016 12:27 Stage of : OB Triage Assessment Type: Triage Level of Consciousness: Fully Conscious DTR's/Clonus: DTRs 2+; No Clonus Headache: Denies Blurred Vision: No Respiratory Effort: Unlabored; Regular Rhythm; Equal Expansion Breath Sounds, Left: Clear and Equal Breath Sounds, Right: Clear and Equal Nausea/Vomiting: Denies RUQ Epigastric Pain: Denies Facial Edema: None Temperature Route: Axillary History of Falling: (0) No Secondary Diagnosis: (0) No Ambulatory Aid: (0) Bedrest/Nurse Assist IV Therapy: (0) No Gait: (0) Normal/Bedrest/Immobile Mental Status: (0) Oriented to Own Ability Fall Score: 0 Fall Risk Score Definition: No Risk: No action required Frequency: 3-5 Monitor Mode: External Duration (sec)2399: 50-70 Quality: Mild Pattern: Normal: <= 5 Contractions in 10 Minutes Resting Tone [place]: Relaxed Pain Scale: 0 Pain Presence: None/Denies Pain Type: N/A Datetime: 11/21/2016 12:26 Time of Arrival: 11/21/2016 11:10 EGA: 36.1 Arrived By: Ambulatory Arrived From: Home Chief Complaint: FOLLOW UP 24 HOUR URINE, DENIES BLEEDING OR LEAKING, SOME UC'S Movement: Present Contractions: Irregular Rupture of Membranes: Denies Vaginal Bleeding: None Vaginal Discharge: Denies Recent Sexual Intercouse: Denies Abdominal Trauma: Not Applicable Patient Complaints: Contractions; Cramping Time Provider Notified: 11/21/2016 13:40 Provider Notified: LESLEY Initial Plan: MONITOR, CREATINE, CREATINE CLEARANCE, TOTAL PROTEIN, BPP/USAMA
== END 2016-11-21 16:40 | disposition home or self-care (01) ==
LOC: OBT 11:14 → L-D 11:18 → OBT 16:40
PROVIDERS: ATTEND Obstetrics & Gynecology
DX: O24.414 Gestational diabetes mellitus in pregnancy, insulin controlled (principal); Z3A.36 36 weeks gestation of pregnancy; O40.3XX0 Polyhydramnios, third trimester, not applicable or unspecified; O32.1XX0 Maternal care for breech presentation, not applicable or unspecified; O13.3 Gestational [pregnancy-induced] hypertension without significant proteinuria, third trimester; O47.03 False labor before 37 completed weeks of gestation, third trimester
CPT/HCPCS: 36415; 76818; 82565; 82575; 82947; 82962; 84156; 96360; 96361; J7120; Z7500; Z7610; G0463

== ENCOUNTER 2016-11-28 08:00 | Inpatient (IN) | payer MEDICAID ==
[~2016-11-28] VITALS: Ht 152.4 cm; Wt 86.6 kg
[2016-11-28 08:42] VITALS: BP 116/68; PULSE 107; RESP 18
[2016-11-28] MEDS ORDERED: MINERAL OIL LIGHT 10 ML VIAL TOP ONE (09:00)
[2016-11-28] MEDS ORDERED: LIDOCAINE 1% (MPF) 30 ML INJ INJ PRN (09:00)
[2016-11-28] MEDS ORDERED: OXYTOCIN 30 UNITS/LR 500 ML IV PRN (09:00)
[2016-11-28] MEDS ORDERED: IBUPROFEN 600 MG TAB PO PRN (09:00)
[2016-11-28] MEDS ORDERED: METHYLERGONOVINE 0.2 MG INJ IM PRN (09:00)
[2016-11-28] MEDS ORDERED: MISOPROSTOL 200 MCG TAB PR PRN (09:00)
[2016-11-28] MEDS ORDERED: CARBOPROST 250 MCG INJ IM PRN (09:00)
[2016-11-28] MEDS ORDERED: BUTORPHANOL 2 MG INJ IV PRN ×2 (09:00)
[2016-11-28] MEDS ORDERED: AMPICILLIN 2 GM/NS (PMX) 100 ML ONE (09:08)
[2016-11-28] MEDS ORDERED: AMPICILLIN 2 GM/NS (PMX) 100 ML IVPB ONE (09:30)
[2016-11-28] MEDS: LACTATED RINGER'S 1,000 ML IV SCH ×3 (09:31→16:57)
[2016-11-28 09:47] LABS: BASOPHILS % 0.5 % (0.0-2.0); EOSINOPHILS # 0.2 10^3/ul (0.0-0.5); EOSINOPHILS % 2.6 % (0.0-7.0); HEMATOCRIT 38.6 % (37.0-47.0); HEMOGLOBIN 13.1 g/dl (12.0-16.0); LYMPHOCYTES # 2.5 10^3/ul (0.8-2.9); LYMPHOCYTES % 32.2 % (15.0-51.0); MEAN CORPUSCULAR HEMOGLOBIN 30.5 pg (29.0-33.0); MEAN CORPUSCULAR HGB CONC 33.9 g/dl (32.0-37.0); MEAN PLATELET VOLUME 11.2 fl (7.4-10.4); MONOCYTE # 0.5 10^3/ul (0.3-0.9); MONOCYTES % 6.1 % (0.0-11.0); NEUTROPHIL # 4.4 10^3/ul (1.6-7.5); NEUTROPHILS % 57.3 % (39.0-77.0); PLATELET COUNT 220 10^3/UL (140-415); RED BLOOD COUNT 4.29 10^6/ul (4.20-5.40); WHITE BLOOD COUNT 7.7 10^3/ul (4.8-10.8)
[2016-11-28 10:11] LABS: PARTIAL THROMBOPLASTIN TIME 26.1 Sec (25.0-35.0); PROTIME 13.2 Sec (12.2-14.2)
[2016-11-28] MEDS ORDERED: OXYTOCIN 30 UNITS/LR 500 ML IV SCH (11:00)
[2016-11-28] MEDS: LACTATED RINGER'S 1,000 ML IV PRN ×2 (14:59→16:11)
[2016-11-28] MEDS ORDERED: FENTAnyl 2MCG/ML-ROPIV 0.2% 100 ML ONE (15:25)
[2016-11-28] MEDS ORDERED: HETASTARCH 6% NACL 500 ML ONE (15:55)
[2016-11-28] MEDS ORDERED: NALOXONE (0.4 MG/ML) INJ IV PRN (16:00)
[2016-11-28] MEDS ORDERED: HETASTARCH 6% NACL 500 ML BAG IV* ONE (16:00)
[2016-11-28] MEDS ORDERED: FENTAnyl 2MCG/ML-ROPIV 0.2% 100 ML BAG EPI SCH (16:00)
[2016-11-28] MEDS: AMPICILLIN 1 GM/NS (PMX) 50 ML IVPB SCH ×2 (16:54→20:58)
[2016-11-29] MEDS ORDERED: ACETAMINOPHEN 325 MG TAB PO ONE (00:30)
[2016-11-29] MEDS ORDERED: GENTAMICIN 120 MG/NS (PMX) 100 ML IVPB ONE (01:00)
[2016-11-29] MEDS: AMPICILLIN 1 GM/NS (PMX) 50 ML IVPB SCH ×2 (01:06→05:00)
[2016-11-29] MEDS ORDERED: ONDANSETRON 4 MG INJ IV ONE (01:25)
[2016-11-29] MEDS ORDERED: METOCLOPRAMIDE 10 MG INJ ONE (01:27)
[2016-11-29] MEDS ORDERED: DEXAMETHASONE 4 MG/ML 1 ML INJ ONE (01:27)
[2016-11-29] MEDS ORDERED: KETOROLAC 30 MG INJ ONE (01:27)
[2016-11-29] MEDS ORDERED: OXYTOCIN 10 UNIT INJ ONE (01:27)
[2016-11-29] MEDS ORDERED: CITRIC ACID/NA CITRATE 30 ML CUP PO ONE (01:30)
[2016-11-29] MEDS ORDERED: CLINDAMYCIN 900 MG/D5W (PMX) 50 ML IVPB ONE (02:14)
[2016-11-29] MEDS ORDERED: ONDANSETRON 4 MG INJ IV PRN (02:30)
[2016-11-29] MEDS ORDERED: ACETAMINOPHEN 500 MG TAB PO PRN (02:30)
[2016-11-29] MEDS ORDERED: NALOXONE (0.4 MG/ML) INJ IV PRN (02:30)
[2016-11-29] MEDS ORDERED: CLINDAMYCIN 900 MG INJ IM ONE (02:30)
[2016-11-29] MEDS ORDERED: morphine 4 MG/ML VIAL IV PRN (02:30)
[2016-11-29] MEDS ORDERED: HYDROCODONE/APAP (5/325) TAB PO PRN ×2 (02:30→06:00)
[2016-11-29] MEDS ORDERED: HYDROmorphONE 1 MG/ML SYG IV PRN ×2 (02:30)
[2016-11-29] MEDS ORDERED: NALBUPHINE HCL (10 MG/1 ML) INJ IV PRN (02:30)
[2016-11-29] MEDS ORDERED: morphine 2 MG INJ IV PRN (02:30)
[2016-11-29] MEDS ORDERED: DIPHENHYDRAMINE 50 MG INJ IV PRN (02:30)
[2016-11-29] MEDS ORDERED: MEPERIDINE 100 MG INJ ONE (02:45)
--- NOTE | 2016-11-29 03:03 | HP ---
Date/Time of Note Date/Time of Note DATE: 11/29/16 TIME: 02:59 OB - History Hx of Present Free Text/Dictation 26-year-old female admitted for elective induction because of mild - induced hypertension and gestational diabetes with possible macrosomia Last Menstrual Period: Mar 13, 2016 Estimated Due Date: Dec 18, 2016 : 6 Para: 3 Spontaneous : 1 Therapeutic : 1 Care: Good Care Ultrasounds: Normal mid trimester US Obstetrical Complications: Gestational Diabetes, Gestational Hypertension Medical Complications: None Other Concerns: Mild PIH Past Family/Social History * Past Medical, Surgical, Family and Obstetric Histories reviewed from chart. Blood Type: A+ Rubella: immune RPR/VDRL: Negative GBS Status: Positive HBsAG: Negative OB Admission Exam Vital Signs Vital Signs Vital Signs Date Time Temp Pulse Resp B/P Pulse Ox O2 Delivery O2 Flow Rate FiO2 11/28/16 08:42 97.4 107 18 116/68 Room Air Physical Exam HEENT: WNL Heart: Rhythm Normal Lungs: Clear, Equal Abdomen: WNL Extremities: Normal Reflexes: Normal Cervical Dilatation: 3cm Effacement: 50% Station: -3 Membranes: Intact Heart Rate: 140's Accelerations: Accelerations Present Decelerations: No Decelerations Varibility: Marked Contractions on Admission: 6-10 Minutes Apart Last 72 hourBlood Glucose Bedside Glucose - 72 Hours Test 11/28/16 10:13 11/28/16 12:29 11/28/16 16:44 11/28/16 19:46 Bedside Glucose 94mg/dL (70-220) 92mg/dL (70-220) 76mg/dL (70-220) 76mg/dL (70-220) Test 11/28/16 22:48 Bedside Glucose 85mg/dL (70-220) Last 72 hours Lab Results CBC & BMP 11/28/16 09:28 OB Assessment/Plan Reason for admission: group B positive strep, induction of labor Other Assessment: Gestational diabetes -induced hypertension at 37 weeks Induction Method: per Pitocin Protocol ALLISON GUTIERREZ MD Nov 29, 2016 03:03
--- NOTE | 2016-11-29 03:05 | QN ---
Documentation Comment Patient progress of cervical dilatation to complete -2 station Self decided to have a section after 45 minutes of pushing Baby appeared to have caput at -2 station also with molding We will proceed with per patient desire and possibility of macrosomia in a diabetic mother ALLISON GUTIERREZ MD Nov 29, 2016 03:05
--- NOTE | 2016-11-29 03:08 | OPR ---
Operative Report Planned Procedure Procedure date Nov 29, 2016 Procedure(s) Primary Performed by: ALLISON GUTIERREZ MD Assisting provider: ASAD PENN MD Anesthesiologist: ARPIT HARDY MD Pre-procedure diagnosis Arrest of descent Term gestation Possible macrosomia Gestational diabetes -induced hypertension Anesthesia Type: spinal Procedure Description Under satisfactory anaesthesia a Pfannenstiel incision was made two fingerbreadth above and parallel to the symphysis of pubis. Incision was extended laterally to the border of the Recti muscles on either sides. Incision was carried down with sharp and blunt dissection until fascia was reached. Anterior Recti muscle fascia was incised in mid portion and incision extended laterally to the border of skin incision. Fascia was mobilized from muscle superiorly and Recti muscles were from midline using sharp and blunt dissection. Peritoneum was visualized; Avoiding bowel and bladder it was incised . Incision was extended superiorly and inferiorly. Bladder blade was placed. Posterior peritoneum covering the lower segment of the uterus and lower segment of the uterus were incised. Incision was extended laterally to the border of Round Lig. on either sides and baby was delivered from OP. position . Amniotic fluid appeared clear. Cord blood was obtained and cord had 3 vessels . Placenta was delivered spontaneously and appeared intact and complete. Intrauterine cavity was rubbed with a laparotomy sponge. Uterine incision was closed in 2 layers using running stitches of No1 Monocryl. Hemostasis appeared secure. Ovaries and Fallopian tubes were within normal limits. Announcing needle, lap sponge and instrument count to be correct abdomen was closed in layers as follows: Peritoneum and Recti muscles with running stitches of 20 Vicryl. Fascia with running stitch of No 1 PDS. Subcutaneous tissue with running stitches of 20 Chromic and skin was closed using larry. Patient tolerated the procedure well and was transferred to [facility] in good condition. Post-Procedure Post-procedure diagnosis Status post Findings: Live Baby in OT position Normal right and left fallopian tubes and ovaries Specimen removed: No Complications: None Pt Condition post procedure: stable Disposition: PACU Physician Certification I, the undersigned physician, hereby certify that I have discussed the procedure described in this consent form with this patient (or the patient's legal medical sales representative), including: * The risk and benefits of the procedure; * Any adverse reactions that may reasonably be expected to occur; * Any alternative efficacious methods of treatment which may be medically viable ; * The potential problems that may occur during recuperation; * Potential for blood transfusion and associated risks/benefits; and * Any research or economic interest I may have regarding this treatment. I further certify that the patient/legally responsible person was encouraged to ask question and that all questions were answered. ALLISON GUTIERREZ MD Nov 29, 2016 03:08
[2016-11-29] MEDS ORDERED: OXYTOCIN 30 UNITS/LR 500 ML IV SCH (05:30)
[2016-11-29 06:00] VITALS: BP 131/74; PULSE 75; RESP 19
[2016-11-29] MEDS: ACCU-CHEK XX SCH ×5 (06:00→20:31)
[2016-11-29] MEDS: IBUPROFEN 800 MG TAB PO SCH (06:00)
[2016-11-29] MEDS ORDERED: LANOLIN 7 GM TUBE TOP PRN (06:00)
[2016-11-29] MEDS ORDERED: CARBOPROST 250 MCG INJ IM PRN (06:00)
[2016-11-29] MEDS ORDERED: MISOPROSTOL 200 MCG TAB PR PRN (06:00)
[2016-11-29] MEDS ORDERED: OXYTOCIN 30 UNITS/LR 500 ML IV PRN (06:00)
[2016-11-29] MEDS ORDERED: NA PHOSPHATE/BIPHOS 133 ML ENEMA PR PRN (06:00)
[2016-11-29] MEDS ORDERED: GENTAMICIN 80 MG/NS (PMX) 50 ML IVPB SCH ×2 (06:00→09:00)
[2016-11-29] MEDS ORDERED: METHYLERGONOVINE 0.2 MG INJ IM PRN (06:00)
[2016-11-29] MEDS ORDERED: GLUCOSE GEL 15 GRAM TUBE PO PRN ×2 (06:05)
[2016-11-29] MEDS ORDERED: GLUCOSE GEL 15 GRAM TUBE BUCCAL PRN (06:05)
[2016-11-29] MEDS ORDERED: DEXTROSE 50% 50 ML SYRINGE IV PRN ×2 (06:05)
[2016-11-29] MEDS ORDERED: GLUCAGON 1 MG INJ IM PRN (06:05)
[2016-11-29] MEDS: AMPICILLIN 2 GM/NS (PMX) 100 ML IVPB SCH ×4 (06:16→23:59)
[2016-11-29 08:00] VITALS: BP 131/76; PULSE 77; RESP 19
[2016-11-29] MEDS: metFORMIN (XR) 500 MG TAB PO SCH ×2 (08:39→20:31)
[2016-11-29] MEDS: CLINDAMYCIN 900 MG/D5W (PMX) 50 ML IVPB SCH ×4 (08:39→20:31)
[2016-11-29] MEDS: KETOROLAC 30 MG INJ IV PRN ×3 (08:40→20:25)
[2016-11-29] MEDS: SENNA/DOCUSATE NA (8.6MG/50MG) TAB PO SCH ×2 (09:04→20:31)
[2016-11-29] MEDS: GENTAMICIN 80 MG/NS (PMX) 50 ML IVPB SCH ×2 (09:04→17:06)
[2016-11-29] MEDS: LACTATED RINGER'S 1,000 ML IV SCH ×3 (10:46→21:39)
[2016-11-29 12:00] VITALS: BP 122/66; PULSE 84; RESP 18
[2016-11-29 16:00] VITALS: BP 121/79; PULSE 87; RESP 20
[2016-11-29] MEDS ORDERED: BISACODYL 10 MG SUPP PR ONE (18:30)
[2016-11-29 20:00] VITALS: BP 115/74; PULSE 95; RESP 19
[2016-11-30] VITALS: BP 118/71; PULSE 92; RESP 17
[2016-11-30] MEDS: GENTAMICIN 80 MG/NS (PMX) 50 ML IVPB SCH ×3 (01:00→16:42)
[2016-11-30] MEDS: KETOROLAC 30 MG INJ IV PRN (02:08)
[2016-11-30] MEDS: CLINDAMYCIN 900 MG/D5W (PMX) 50 ML IVPB SCH ×4 (02:36→20:47)
[2016-11-30 03:45] VITALS: BP 122/83; PULSE 91; RESP 17
[2016-11-30] MEDS: AMPICILLIN 2 GM/NS (PMX) 100 ML IVPB SCH ×3 (05:37→18:14)
[2016-11-30] MEDS: IBUPROFEN 800 MG TAB PO SCH ×3 (06:00→21:56)
[2016-11-30] MEDS: ACCU-CHEK XX SCH ×4 (07:30→20:46)
[2016-11-30 07:46] LABS: BASOPHIL # 0.1 10^3/ul (0.0-0.1); BASOPHILS % 0.4 % (0.0-2.0); EOSINOPHILS # 0.2 10^3/ul (0.0-0.5); HEMATOCRIT 36.7 % (37.0-47.0); HEMOGLOBIN 12.1 g/dl (12.0-16.0); LYMPHOCYTES # 3.5 10^3/ul (0.8-2.9); LYMPHOCYTES % 20.4 % (15.0-51.0); MEAN CORPUSCULAR HEMOGLOBIN 30.5 pg (29.0-33.0); MEAN CORPUSCULAR VOLUME 92.4 fl (82.0-101.0); MONOCYTE # 1.1 10^3/ul (0.3-0.9); MONOCYTES % 6.4 % (0.0-11.0); NEUTROPHIL # 12.1 10^3/ul (1.6-7.5); PLATELET COUNT 253 10^3/UL (140-415); RED BLOOD COUNT 3.97 10^6/ul (4.20-5.40); RED CELL DISTRIBUTION WIDTH 14.5 % (11.5-14.5)
[2016-11-30 08:15] VITALS: BP 134/86; PULSE 77; RESP 18
[2016-11-30] MEDS: OXYCODONE/ACETAMINOPHEN (5/325) TAB PO PRN (08:52)
[2016-11-30] MEDS: SENNA/DOCUSATE NA (8.6MG/50MG) TAB PO SCH ×2 (08:53→20:47)
[2016-11-30] MEDS: metFORMIN (XR) 500 MG TAB PO SCH ×2 (08:53→20:47)
[2016-11-30 16:00] VITALS: BP 136/79; PULSE 77; RESP 18
--- NOTE | 2016-11-30 16:34 | PN ---
Date/Time of Note Date/Time of Note DATE: 11/30/16 TIME: 16:32 Assessment/Plan VTE Prophylaxis VTE Prophylaxis Intervention: ambulation Lines/Catheters IV Catheter Type (from Nrsg): Peripheral IV Assessment/Plan Assessment/Plan Postop day 1 status post We will advance diet and ambulate Monitor vital signs Continue IV antibiotic Repeat CBC next day Subjective 24 Hr Interval Summary No bowel movement Passing flatus Constitutional: BM, ambulates, flatus, improved, no complaints, urine output Pain Control: well controlled Exam/Review of Systems Vital Signs Vitals Vital Signs Date Time Temp Pulse Resp B/P Pulse Ox O2 Delivery O2 Flow Rate FiO2 11/30/16 08:15 97.7 77 18 134/86 Room Air 11/30/16 06:13 96 21 Intake and Output 11/29/16 11/29/16 11/30/16 15:00 23:00 07:00 Intake Total 420 ml 575 ml 700 ml Output Total 700 ml 900 ml 2450 ml Balance -280 ml -325 ml -1750 ml Exam Free Text/Dictation Abdomen is soft, tender around incision, bowel sounds are present Incision is covered Constitutional: alert, oriented, well developed Psych: nl mood/affect, no complaints Head: atraumatic, normocephalic Eyes: EOMI, nl conjunctiva, nl lids, nl sclera ENMT: mucosa pink and moist, nl external ears & nose, nl lips & teeth, nl nasal mucosa & septum Neck: non-tender, supple Respiratory: clear to auscultation, normal air movement Cardiovascular: nl pulses, regular rate and rhythm Gastrointestinal: nl liver, spleen, non-tender, soft Drains None Musculoskeletal: nl extremities to inspection, nl gait and stance Extremities: normal pulses Neurological: 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
[2016-11-30 20:30] VITALS: BP 125/86; PULSE 85; RESP 18
[2016-11-30] MEDS ORDERED: BISACODYL 10 MG SUPP PR SCH (23:30)
[2016-12-01] MEDS: AMPICILLIN 2 GM/NS (PMX) 100 ML IVPB SCH ×4 (00:42→18:17)
[2016-12-01] MEDS: OXYCODONE/ACETAMINOPHEN (5/325) TAB PO PRN (01:39)
[2016-12-01] MEDS: GENTAMICIN 80 MG/NS (PMX) 50 ML IVPB SCH ×3 (01:40→16:59)
[2016-12-01] MEDS: CLINDAMYCIN 900 MG/D5W (PMX) 50 ML IVPB SCH ×4 (02:43→21:01)
[2016-12-01 04:00] VITALS: BP 120/74; PULSE 83; RESP 18
[2016-12-01] MEDS: IBUPROFEN 800 MG TAB PO SCH ×3 (05:30→21:32)
[2016-12-01] MEDS: ACCU-CHEK XX SCH ×4 (07:30→20:05)
[2016-12-01 08:10] VITALS: BP 113/61; PULSE 75; RESP 18
[2016-12-01] MEDS: metFORMIN (XR) 500 MG TAB PO SCH ×2 (09:17→21:01)
[2016-12-01] MEDS: SENNA/DOCUSATE NA (8.6MG/50MG) TAB PO SCH ×2 (09:17→21:01)
[2016-12-01 11:16] LABS: BASOPHILS % 0.4 % (0.0-2.0); EOSINOPHILS # 0.2 10^3/ul (0.0-0.5); EOSINOPHILS % 1.6 % (0.0-7.0); HEMATOCRIT 32.6 % (37.0-47.0); HEMOGLOBIN 10.8 g/dl (12.0-16.0); LYMPHOCYTES # 2.7 10^3/ul (0.8-2.9); LYMPHOCYTES % 24.1 % (15.0-51.0); MEAN CORPUSCULAR HEMOGLOBIN 30.3 pg (29.0-33.0); MEAN CORPUSCULAR HGB CONC 33.1 g/dl (32.0-37.0); MEAN CORPUSCULAR VOLUME 91.6 fl (82.0-101.0); MEAN PLATELET VOLUME 10.5 fl (7.4-10.4); MONOCYTE # 0.7 10^3/ul (0.3-0.9); MONOCYTES % 5.8 % (0.0-11.0); NEUTROPHIL # 7.5 10^3/ul (1.6-7.5); NEUTROPHILS % 67.4 % (39.0-77.0); PLATELET COUNT 289 10^3/UL (140-415); RED BLOOD COUNT 3.56 10^6/ul (4.20-5.40); RED CELL DISTRIBUTION WIDTH 14.3 % (11.5-14.5); WHITE BLOOD COUNT 11.2 10^3/ul (4.8-10.8)
--- NOTE | 2016-12-01 14:41 | DS ---
Date/Time of Note Date/Time of Note Home next day DATE: 12/01/16 TIME: 14:36 Obstetrical Discharge Record Final Diagnosis Final Diagnosis: Term delivered Other Final Diagnosis Status post Class A-II diabetes -induced hypertension Section Section: Primary Primary Indication Arrest of descent Macrosomia by diabetic criteria Complications Gestational Diabetes, Preg induced Hypertension Augmentation: Yes Induction: Yes Condition on Discharge Physical Assessment Last Vitals: See nurse's note Voiding: Yes Bowel Movement: Yes Breast: Soft, non-tender, Filling Fundus: Firm Abdomen and Incision: Soft bowel sounds present Incision healing well, incision has no erythema or induration Episiotomy: Not applicable Calf Tenderness: No Patient Condition: Good ALLISON GUTIERREZ MD Dec 01, 2016 14:41
--- NOTE | 2016-12-01 14:43 | DS ---
Date/Time of Note Date/Time of Note DATE: 12/01/16 TIME: 14:41 Discharge Summary Admission/Discharge Info Admit Date/Time Nov 28, 2016 at 08:23 Discharge Date/Time December 02, 2016 Discharge Diagnosis Status post Diabetes Status post -induced hypertension Procedures Primary Hx of Present Illness 26-year-old female was admitted for induction of labor at 37 weeks with gestational diabetes and gestational hypertension. Had primary because of arrest of descent. Baby's weight was around 4500 g Hospital Course Uncomplicated Home Meds Reported Medications Nifedipine* (Procardia*) 20 Mg Cap, 20 MG PO Q6, CAP 11/19/16 Insulin Regular, Human (Humulin R) 100 Unit/1 Ml Vial, 10 UNIT IJ QHS, VIAL 11/19/16 Insulin Human Regular (Novolin-R U-100) 100 Unit/Ml Soln, 10 UNITS SC AC BREAKFAST, EA 11/19/16 NPH, Human Insulin Isophane (Humulin N Kwikpen) 100 Unit/1 Ml Insuln.pen, 10 UNIT SQ QHS, EA 11/19/16 NPH, Human Insulin Isophane (Humulin N Kwikpen) 100 Unit/1 Ml Insuln.pen, 25 UNIT SQ AC BREAKFAST, EA 11/19/16 Vits W-Ca,Fe,Fa(<1MG) () 1 Tab Tablet 02/04/11 Follow-up Plan 2 3 days in clinic for staple removal Primary Care Provider Care Physician No Primary Time spent on discharge: > 30 minutes Pending Labs Laboratory Tests Test 11/30/16 15:26 11/30/16 20:43 12/01/16 08:53 12/01/16 10:57 Bedside Glucose 92mg/dL (70-220) 96mg/dL (70-220) 103mg/dL (70-220) White Blood Count 11.210^3/ul (4.8-10.8) Red Blood Count 3.5610^6/ul (4.20-5.40) Hemoglobin 10.8g/dl (12.0-16.0) Hematocrit 32.6% (37.0-47.0) Mean Corpuscular Volume 91.6fl (82.0-101.0) Mean Corpuscular Hemoglobin 30.3pg (29.0-33.0) Mean Corpuscular Hemoglobin Concent 33.1g/dl (32.0-37.0) Red Cell Distribution Width 14.3% (11.5-14.5) Platelet Count 39309^3/UL (140-415) Mean Platelet Volume 10.5fl (7.4-10.4) Neutrophils % 67.4% (39.0-77.0) Lymphocytes % 24.1% (15.0-51.0) Monocytes % 5.8% (0.0-11.0) Eosinophils % 1.6% (0.0-7.0) Basophils % 0.4% (0.0-2.0) Nucleated Red Blood Cells % 0.0/100WBC (0.0-0.0) Neutrophils # 7.510^3/ul (1.6-7.5) Lymphocytes # 2.710^3/ul (0.8-2.9) Monocytes # 0.710^3/ul (0.3-0.9) Eosinophils # 0.210^3/ul (0.0-0.5) Basophils # 0.010^3/ul (0.0-0.1) Nucleated Red Blood Cells # 0.010^3/ul (0.0-0.0) Test 12/01/16 11:47 Bedside Glucose 76mg/dL (70-220) ALLISON GUTIERREZ MD Dec 01, 2016 14:43
--- NOTE | 2016-12-01 14:45 | PD.PPDC ---
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 Provider Information Physician Information 26-year-old female admitted for induction of labor at 37 weeks because of PIH and gestational diabetes and finally had primary because of arrest of descent Diagnosis Final Diagnosis: Status post Condition Patient Condition: Good Diet Diet: Special Diet Special Diet: 1800-calorie ADA diet Activity/Restrictions Activity: August Shower Restrictions: No Exercising No Lifting Nothing in the Vagina Return to Work or School: Feb 02, 2017 Wound/Drain Care Instructions Wound/Drain Care Instructions: Keep clean and dry Follow-up Follow-up with Physician: 2, 3, Day/Days (In clinic) 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
[2016-12-01] MEDS ORDERED: METF500T3 PO (14:47)
[2016-12-01] MEDS ORDERED: IBUP800T25 PO (14:47)
[2016-12-01 16:00] VITALS: BP 110/60; PULSE 63
[2016-12-01] MEDS: LACTATED RINGER'S 1,000 ML IV SCH ×2 (19:45→22:48)
[2016-12-01 19:55] VITALS: BP 122/79; PULSE 90; RESP 18
[2016-12-02] MEDS: AMPICILLIN 2 GM/NS (PMX) 100 ML IVPB SCH ×2 (00:16→05:50)
[2016-12-02] MEDS: GENTAMICIN 80 MG/NS (PMX) 50 ML IVPB SCH ×2 (01:13→10:09)
[2016-12-02] MEDS: CLINDAMYCIN 900 MG/D5W (PMX) 50 ML IVPB SCH ×2 (03:09→09:00)
[2016-12-02 03:40] VITALS: BP 119/84; PULSE 87; RESP 19
[2016-12-02] MEDS: IBUPROFEN 800 MG TAB PO SCH ×2 (05:36→13:14)
[2016-12-02] MEDS: LACTATED RINGER'S 1,000 ML IV SCH (05:40)
[2016-12-02 08:20] VITALS: BP 109/66; PULSE 80; RESP 16
[2016-12-02] MEDS: ACCU-CHEK XX SCH (08:23)
[2016-12-02] MEDS: SENNA/DOCUSATE NA (8.6MG/50MG) TAB PO SCH (09:00)
[2016-12-02] MEDS ORDERED: DIPHTH/TET/ACEL PERTUSS (ADULT) 0.5 ML VIAL IM* ONE (09:00)
[2016-12-02] MEDS: metFORMIN (XR) 500 MG TAB PO SCH (09:01)
[2016-12-02] MEDS ORDERED: MEASLES,MUMPS,RUBELLA VACCINE INJ SC* ONE (11:30)
== END 2016-12-02 14:40 | disposition home or self-care (01) | DRG 766 ==
LOC: L-D 08:23 → PP1 11-29 05:41
PROVIDERS: ADMIT Obstetrics & Gynecology; ATTEND Obstetrics & Gynecology
PROC: 3E033VJ Introduction of Other Hormone into Peripheral Vein, Percutaneous Approach (ICD-10-PCS; 2016-11-28)
PROC: 10D00Z1 Extraction of Products of Conception, Low, Open Approach (ICD-10-PCS; principal; 2016-11-29)
DX: O13.4 Gestational [pregnancy-induced] hypertension without significant proteinuria, complicating childbirth (principal); O24.429 Gestational diabetes mellitus in childbirth, unspecified control; Z37.0 Single live birth; O99.824 Streptococcus B carrier state complicating childbirth; Z3A.37 37 weeks gestation of pregnancy; O36.63X0 Maternal care for excessive fetal growth, third trimester, not applicable or unspecified; O62.1 Secondary uterine inertia
CPT/HCPCS: 62319; 82962; 85025; 85610; 85730; 86592; 86900; 86901; 87340; 90715; 94760; 99464; J0290; J1100; J1580; J1885; J2175; J2270; J2405; J2590; J2765; J3010; J7120